=== PATIENT | male | born 1995 | race Caucasian/White ===

== ENCOUNTER 2021-06-07 14:08 | Emergency (ER) | payer OTHER ==
[~2021-06-07] VITALS: Ht 165.1 cm; Wt 97.5 kg
[2021-06-07] MEDS ORDERED: LAMICTAL200 MG PO (16:17)
[2021-06-07] MEDS ORDERED: SEROQUEL100 MG PO (16:17)
[2021-06-07] MEDS ORDERED: XANAX1 MG PO (16:18)
--- NOTE | 2021-06-09 21:20 | EKG ---
[facility] [address] [facility] [place], [place] [address] Signed Normal sinus rhythm Normal ECG No previous ECGs available Confirmed by AMAYA MERIDA DO ([id number]) on 06/09/2021 9:20:09 PM Electronically Signed By: AMAYA MERIDA DO 06/09/212119 PATIENT NAME: INOCENCIO HENNING Electrocardiogram DATE OF : [birth year] PHYSICIAN: AMAYA MERIDA DO REPORT #: [id number] REPORT IS CONFIDENTIAL AND NOT TO BE RELEASED WITHOUT AUTHORIZATION
== END 2021-06-07 21:14 | disposition home or self-care (01) ==
LOC: ED 14:08
DX: S00.81XA Abrasion of other part of head, initial encounter (principal); F07.81 Postconcussional syndrome; R55 Syncope and collapse; Z79.899 Other long term (current) drug therapy; W22.8XXA Striking against or struck by other objects, initial encounter
CPT/HCPCS: 70450; 80053; 85025; 93005; 93010; 99284-25

== ENCOUNTER 2021-10-09 12:29 | Emergency (ER) | payer OTHER ==
[~2021-10-09] VITALS: Ht 165.1 cm; Wt 94.0 kg
[~2021-10-09 12:29] MED LIST: LAMICTAL200 MG PO; SEROQUEL100 MG PO; XANAX1 MG PO
--- OUTSIDE RECORDS SUMMARY | 2021-10-09 12:32 | XMS ---
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 Current PHONE: [phone] Frandy has no Care Guidelines for this patient. EKaushal VISIT COUNT (12 MO.) 2 DIMITRI Roy TOTAL 2 NOTE: Visits indicate total known visits. ED/UCC VISIT TRACKING (12 MO.) 10/09/2021 12:30 D[facility] [place] TYPE: Emergency COMPLAINT: - ABD PAIN,BELLY BUTTON BLEEDING 06/07/2021 14:09 DIM[facility] [place] TYPE: Emergency COMPLAINT: - SYNCOPE EPISODE, FACE INJURY DIAGNOSES: - Abrasion of other part of head, initial encounter - Other longterm (current) drug therapy - Postconcussional syndrome - Dizziness and giddiness - Striking against or struck by other objects, initial encounter - Syncope and collapse INPATIENT VISIT TRACKING (12 MO.) No inpatient visits to display in this time frame [email or web address]
[2021-10-09] MEDS ORDERED: CEPHALEXIN500 M1 PO (12:52)
== END 2021-10-09 13:45 | disposition home or self-care (01) ==
LOC: ED 12:29
DX: L03.316 Cellulitis of umbilicus (principal); Z88.8 Allergy status to other drugs, medicaments and biological substances; Z79.899 Other long term (current) drug therapy
CPT/HCPCS: 99283; A9270

== ENCOUNTER 2022-03-11 23:10 | Emergency (ER) | payer OTHER ==
[~2022-03-11] VITALS: Ht 165.1 cm; Wt 94.0 kg
[~2022-03-11 23:10] MED LIST changes: +CEPHALEXIN500 M1 PO
--- OUTSIDE RECORDS SUMMARY | 2022-03-11 23:12 | XMS ---
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 EKaushal VISIT COUNT (12 MO.) 3 DIMITRI Roy TOTAL 3 NOTE: Visits indicate total known visits. 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
[2022-03-11] MEDS ORDERED: KETAMINE H50 MG/1 ML INJ (23:52)
== END 2022-03-12 01:05 | disposition home or self-care (01) ==
LOC: ED 23:10
DX: F32.9 Major depressive disorder, single episode, unspecified (principal); Z76.0 Encounter for issue of repeat prescription
CPT/HCPCS: 36415; 80053; 81001; 85025; 99284; J7121

== ENCOUNTER 2022-07-20 15:14 | Emergency (ER) | payer OTHER, BC ==
[~2022-07-20] VITALS: Ht 165.1 cm; Wt 94.0 kg
[~2022-07-20 15:14] MED LIST changes: +KETAMINE H50 MG/1 ML INJ
--- OUTSIDE RECORDS SUMMARY | 2022-07-20 15:16 | XMS ---
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 EKaushal VISIT COUNT (12 MO.) 3 DIMITRI Roy TOTAL 3 NOTE: Visits indicate total known visits. ED/UCC VISIT TRACKING (12 MO.) 07/20/2022 15:14 [facility] [place] TYPE: Emergency COMPLAINT: - POSS UTI 03/11/2022 23:11 D[facility] Thomson [place] TYPE: Emergency COMPLAINT: - MEDICATION REFILL DIAGNOSES: - Encounter for issue of repeat prescription - Major depressive disorder, single episode, unspecified 10/09/2021 12:30 D[facility] [place] TYPE: Emergency COMPLAINT: - ABD PAIN,BELLY BUTTON BLEEDING DIAGNOSES: - Other shelter (current) drug therapy - Allergy status to other drugs, medicaments and biological substances - Cellulitis of umbilicus INPATIENT VISIT TRACKING (12 MO.) No inpatient visits to display in this time frame [email or web address]
[2022-07-20] MEDS ORDERED: KETAMINE H100 MG/11 (16:20)
[2022-07-20] MEDS ORDERED: PYRIDIUM200 MG PO (21:11)
== END 2022-07-20 21:27 | disposition home or self-care (01) ==
LOC: ED 15:14
DX: R30.0 Dysuria (principal); R35.0 Frequency of micturition; Z88.8 Allergy status to other drugs, medicaments and biological substances
CPT/HCPCS: 51798; 74176; 81003; 87491; 99284-25

== ENCOUNTER 2022-09-15 03:22 | Emergency (ER) | payer BC ==
[~2022-09-15] VITALS: Ht 165.1 cm; Wt 94.0 kg
[~2022-09-15 03:22] MED LIST changes: +KETAMINE H100 MG/11; +PYRIDIUM200 MG PO
--- OUTSIDE RECORDS SUMMARY | 2022-09-15 03:24 | XMS ---
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 E.Hilary VISIT COUNT (12 MO.) [address] [place] [address] TOTAL 5 NOTE: Visits indicate total known visits. ED/UCC VISIT TRACKING (12 MO.) 09/15/2022 03:22 DIMITRI Thomson [place] TYPE: Emergency COMPLAINT: - MEDICAL CLEARANCE 08/23/2022 16:35 [facility] [place] TYPE: Emergency DIAGNOSES: - Displaced fracture of distal phalanx of left thumb, initial encounter for closed fracture - finger lac 07/20/2022 15:14 DIMITRI Thomson [place] TYPE: Emergency COMPLAINT: - POSS UTI DIAGNOSES: - Allergy status to other drugs, medicaments and biological substances - Dysuria - Urgency of urination - Dysuria - Frequency of micturition 03/11/2022 23:11 DIMITRI Thomson [place] TYPE: Emergency COMPLAINT: - MEDICATION REFILL DIAGNOSES: - Major depressive disorder, single episode, unspecified - Encounter for issue of repeat prescription 10/09/2021 12:30 DIMITRI Thomson [place] TYPE: Emergency COMPLAINT: - ABD PAIN,BELLY BUTTON BLEEDING DIAGNOSES: - Allergy status to other drugs, medicaments and biological substances - Cellulitis of umbilicus - 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
[2022-09-15] MEDS ORDERED: BRINTELLIX20 MG (03:33)
[2022-09-15] MEDS ORDERED: NALOXONE HCL4 MG NS (03:33)
== END 2022-09-15 13:30 ==
LOC: ED 03:22
DX: F32.A Depression, unspecified (principal); Z79.899 Other long term (current) drug therapy
CPT/HCPCS: 36415; 80053; 84443; 85025; 87502; 99285; A9270; G0480; U0003

== ENCOUNTER 2024-06-29 11:48 | Emergency (ER) | payer OTHER ==
[~2024-06-29] VITALS: Ht 165.1 cm; Wt 113.4 kg
[~2024-06-29 11:48] MED LIST changes: +BRINTELLIX20 MG; +NALOXONE HCL4 MG NS
[2024-06-29] MEDS ORDERED: ALPRAZOLAM ER1 MG PO (11:58)
[2024-06-29] MEDS ORDERED: CYANOCOBAL1000 MCG/M IM (11:59)
[2024-06-29] MEDS ORDERED: TRAZODONE HCL100 MG PO (11:59)
[2024-06-29] MEDS ORDERED: LITHIUM CARBON300 MG PO (12:00)
[2024-06-29 12:31] VITALS: BP 147/89
== END 2024-06-29 12:32 | disposition home or self-care (01) ==
LOC: ED 11:48
DX: R51.9 Headache, unspecified (principal); Z79.899 Other long term (current) drug therapy; W22.8XXA Striking against or struck by other objects, initial encounter
CPT/HCPCS: 99283